=== PATIENT | female | born 1980 | race African-American/Black ===

== ENCOUNTER 2016-10-12 12:57 | Emergency (ER) | payer MEDICAID ==
[~2016-10-12] VITALS: Ht 157.5 cm; Wt 66.3 kg
[2016-10-12] MEDS ORDERED: PNV11TAB PO (13:04)
[2016-10-12 13:50] LABS: BASOPHILS # (AUTO) 0.06 K/uL (0.00-0.20); BASOPHILS % (AUTO) 0.8 % (0.0-2.0); EOSINOPHILS # (AUTO) 0.05 K/uL (0.00-0.70); EOSINOPHILS % (AUTO) 0.69 % (1.0-6.0); HEMATOCRIT 40.9 % (36-46); LYMPHOCYTES # (AUTO) 2.4 K/uL (1.0-4.8); MEAN CORPUSCULAR HEMOGLOBIN 31.1 pg (26.0-34.0); MEAN CORPUSCULAR HGB CONC 34.3 G/dL (31.0-37.0); MEAN CORPUSCULAR VOLUME 91 fL (80-100); MONOCYTES # (AUTO) 0.3 K/uL (0.1-1.0); MONOCYTES % (AUTO) 4.8 % (2.0-9.0); NEUTROPHILS # (AUTO) 4.2 K/uL (1.8-7.7); NEUTROPHILS % (AUTO) 59.7 % (40.0-70.0); PLATELET COUNT (AUTO) 182 K/uL (150-450); WHITE BLOOD COUNT (AUTO) 7.1 K/uL (4.5-11.0)
[2016-10-12 14:28] LABS: ANION GAP 12 mmol/L (8-16); CALCIUM, TOTAL 9.1 mg/dL (8.8-10.5); CARBON DIOXIDE 22 mmol/L (22-29); CHLORIDE 104 mmol/L (98-107); CREATININE 0.66 mg/dL (0.60-1.30); GLOMERULAR FILTR. RATE CALC > 60 mL/min (>60); SODIUM SERUM 138 mmol/L (136-145); UREA NITROGEN, BLOOD 9 mg/dL (7-18)
[2016-10-12 14:30] LABS: POTASSIUM 2.8 mmol/L (3.5-5.1)
[2016-10-12] MEDS ORDERED: POTASSIUM CHLORIDE 10% 40 MEQ/30 ML LIQUID UDCUP PO ONE (14:45)
[2016-10-12 16:01] VITALS: BP 109/73
== END 2016-10-12 16:22 | disposition home or self-care (01) ==
LOC: EMS 12:59
DX: O20.0 Threatened abortion (principal); Z3A.01 Less than 8 weeks gestation of pregnancy
CPT/HCPCS: 76801; 76817; 86901; 99285

== ENCOUNTER 2017-01-07 10:50 | Observation (INO) | payer MEDICAID ==
[~2017-01-07] VITALS: Ht 160 cm; Wt 68.9 kg
[~2017-01-07 10:50] MED LIST: PNV11TAB PO
[2017-01-07] MEDS ORDERED: RINGERS SOLUTION,LACTATED 1,000 ML IV ONE (12:15)
[2017-01-07 13:44] VITALS: BP 113/69
[2017-01-07 16:32] LABS: APPEARANCE,URINE CLOUDY (CLEAR); GLUCOSE, URINE (UA) NEGATIVE (NEGATIVE); KETONES,URINE NEGATIVE (NEGATIVE); LEUKOCYTE ESTERASE ,URINE NEGATIVE (NEGATIVE); OCCULT BLOOD,URINE NEGATIVE (NEGATIVE); PROTEIN,URINE NEGATIVE (NEGATIVE)
[2017-01-07 16:38] LABS: ADD UA MICROSCOPIC NO
== END 2017-01-07 14:25 | disposition home or self-care (01) ==
LOC: 4S 10:50
PROVIDERS: ADMIT Obstetrics & Gynecology; ATTEND Obstetrics & Gynecology
DX: O26.893 Other specified pregnancy related conditions, third trimester (principal); R10.30 Lower abdominal pain, unspecified; O09.522 Supervision of elderly multigravida, second trimester; Z3A.27 27 weeks gestation of pregnancy
CPT/HCPCS: 59025; 76811; 80307 ×8; 81003; G0378; J7120